=== PATIENT | male | born 1955 | race Caucasian/White ===

== ENCOUNTER 2017-02-13 20:45 | Inpatient (IN) | payer OTHER ==
[~2017-02-13] VITALS: Ht 170.2 cm; Wt 83.6 kg
[2017-02-13 21:41] LABS: HEMATOCRIT 23.9 % (38.0-50.0); MCH 36.4 PG (29.0-34.0); MCHC 34.3 G/DL (30.0-36.0); MCV 106.2 FL (86-99); MEAN PLAT.VOLUME 9.8 uM^3 (9.0-12.4); NRBC (%) 0.3 /100 WBC (0-0); PLATELET COUNT 552 K/uL (156-360); RBC DIS.WIDTH-CV 16.9 % (11.8-14.6); RBC DIS.WIDTH-SD 65.2 % (39-53); RED BLOOD COUNT 2.25 M/uL (4.00-5.50); WHITE BLOOD COUNT 17.3 K/uL (4.1-10.2)
[2017-02-13 21:49] LABS: CHLORIDE 96 mEq/L (99-109); POTASSIUM 2.8 mEq/L (3.7-5.4); SODIUM 136 mEq/L (136-147)
[2017-02-13 21:50] LABS: GLUCOSE 124 mg/dL (70-99)
[2017-02-13 21:52] LABS: ANION GAP 18 MEQ/L (2-14)
[2017-02-13 21:54] LABS: GFR ESTIMATE (CALCULATED) > 59 mL/min/
[2017-02-13 21:55] LABS: UREA NITROGEN (BUN) 25 mg/dL (9-23)
[2017-02-13 22:00] LABS: TROP-I INTERPRETATION NEGATIVE; TROPONIN-I < 0.01 ng/mL (0.0-0.30)
[2017-02-13 23:42] LABS: ADD MIUA? YES; BILIRUBIN MODERATE; BLOOD NEGATIVE; COLOR AMBER ((YELLOW)); GLUCOSE (STRIP) NEGATIVE; KETONES NEGATIVE; LEUKOCYTES SMALL; NITRITE NEGATIVE; PROTEIN (STRIP) 30; SPECIFIC GRAVITY 1.025 (1.000-1.030)
[2017-02-14] VITALS (14 sets, daily range): BP systolic 0–111; BP diastolic 0–77
[2017-02-14 00:03] LABS: BACTERIA 3+ /HPF; EPITHELIAL CELLS 1+ /HPF; MUCUS 1+ /LPF; RED BLOOD CELLS 0-5 /HPF (0-5); UCUL ADDED? YES; WHITE BLOOD CELLS 15-20 /HPF (0-5)
[2017-02-14 00:22] LABS: ICTOTEST NEGATIVE
[2017-02-14 11:28] LABS: HEMATOCRIT 23.5 % (38.0-50.0); MCH 37.6 PG (29.0-34.0); MCHC 34.9 G/DL (30.0-36.0); MCV 107.8 FL (86-99); PLATELET COUNT 404 K/uL (156-360); RBC DIS.WIDTH-CV 17.1 % (11.8-14.6); RBC DIS.WIDTH-SD 66.2 % (39-53); RED BLOOD COUNT 2.18 M/uL (4.00-5.50)
[2017-02-14 12:09] LABS: ANION GAP 13 MEQ/L (2-14); CHLORIDE 105 MEQ/L (99-109); GFR ESTIMATE (CALCULATED) > 59 mL/min/; SAMPLE HEMOLYSIS CHECK 0; SAMPLE ICTERIC CHECK 0; SAMPLE LIPEMIA CHECK 0; SODIUM 139 MEQ/L (136-147); UREA NITROGEN (BUN) 18 mg/dL (9-23)
[2017-02-14 12:12] LABS: GLUCOSE 66 mg/dL (70-99); POTASSIUM 3.4 MEQ/L (3.7-5.4)
[2017-02-14 16:00] LABS: METH RESISTANT S AUREUS PCR NEGATIVE (NEGATIVE)
[2017-02-14 16:02] LABS: PROBE CHECK PASS; SPECIMEN PROCESSING CONTROL PASS
[2017-02-15] VITALS (24 sets, daily range): BP systolic 66–109; BP diastolic 47–94
[2017-02-15 08:23] LABS: ALKALINE PHOSPHATASE 58 IU/L (3-129); ANION GAP 15 MEQ/L (2-14); CHLORIDE 114 MEQ/L (99-109); GFR ESTIMATE (CALCULATED) 51 mL/min/; POTASSIUM 3.5 MEQ/L (3.7-5.4); SAMPLE HEMOLYSIS CHECK 0; SAMPLE ICTERIC CHECK 1; SAMPLE LIPEMIA CHECK 0; SODIUM 142 MEQ/L (136-147); TOTAL BILIRUBIN 3.9 MG/DL (0.0-1.0); UREA NITROGEN (BUN) 20 mg/dL (9-23)
[2017-02-15 08:26] LABS: GLUCOSE 83 mg/dL (70-99)
[2017-02-15 09:02] LABS: HEMATOCRIT 22.3 % (38.0-50.0); MCH 37.9 PG (29.0-34.0); MCHC 33.6 G/DL (30.0-36.0); MCV 112.6 FL (86-99); MEAN PLAT.VOLUME 10.7 uM^3 (9.0-12.4); NRBC (%) 0.3 /100 WBC (0-0); PLATELET COUNT 316 K/uL (156-360); RBC DIS.WIDTH-CV 18.3 % (11.8-14.6); RBC DIS.WIDTH-SD 74.3 % (39-53); RED BLOOD COUNT 1.98 M/uL (4.00-5.50); WHITE BLOOD COUNT 49.5 K/uL (4.1-10.2)
[2017-02-15 09:41] LABS: ABS NEUTROPHIL COUNT 42.5; ANISOCYTOSIS 1+; BAND NEUTROPHILS 25.5 % (0-8.0); EOSINOPHIL ABS CT 0; HYPOCHROMASIA 1+; INSTRUMENT ABS NEUTROPHIL CT 44.1 K/uL; LYMPHOCYTES 2.8 % (15.0-45.0); MACROCYTES 2+; METAMYELOCYTES 6.6 %; MYELOCYTES 1.9 %; PLAT.SUFFICIENCY ADEQUATE; POLYCHROMASIA 1+; SEG.NEUTROPHILS 60.4 % (46.0-76.0)
[2017-02-15 12:16] LABS: MAGNESIUM 0.9 mg/dl (1.3-2.7)
[2017-02-15] MEDS ORDERED: ALLOPURINOL100 MG PO (14:32)
[2017-02-15] MEDS ORDERED: AMLODIPINE BESY10 MG PO (14:32)
[2017-02-15] MEDS ORDERED: COLCRYS0.6 MG PO (14:33)
[2017-02-15] MEDS ORDERED: PROMETHAZINE12.5 M1 PO (14:33)
[2017-02-15] MEDS ORDERED: BUSPIRONE HCL10 MG PO (14:33)
[2017-02-15] MEDS ORDERED: LEXAPRO10 MG PO (14:33)
[2017-02-15] MEDS ORDERED: ROSUVASTATIN CA10 MG PO (14:34)
[2017-02-16] VITALS (22 sets, daily range): BP systolic 73–120; BP diastolic 48–79
[2017-02-16 07:58] LABS: HEMATOCRIT 20.1 % (38.0-50.0); MCHC 34.8 G/DL (30.0-36.0); MCV 109.2 FL (86-99); MEAN PLAT.VOLUME 11.3 uM^3 (9.0-12.4); NRBC (%) 0.2 /100 WBC (0-0); PLATELET COUNT 234 K/uL (156-360); RBC DIS.WIDTH-CV 18.2 % (11.8-14.6); RBC DIS.WIDTH-SD 71.7 % (39-53); RED BLOOD COUNT 1.84 M/uL (4.00-5.50)
[2017-02-16 08:01] LABS: WHITE BLOOD COUNT 40.8 K/uL (4.1-10.2)
[2017-02-16 08:06] LABS: ANION GAP 12 MEQ/L (2-14); CHLORIDE 118 MEQ/L (99-109); GFR ESTIMATE (CALCULATED) > 59 mL/min/; GLUCOSE 97 mg/dL (70-99); POTASSIUM 3.8 MEQ/L (3.7-5.4); SAMPLE HEMOLYSIS CHECK 0; SAMPLE ICTERIC CHECK 0; SAMPLE LIPEMIA CHECK 0; SODIUM 143 MEQ/L (136-147); UREA NITROGEN (BUN) 21 mg/dL (9-23)
[2017-02-16 08:20] LABS: MAGNESIUM 1.8 mg/dl (1.3-2.7)
[2017-02-16 08:46] LABS: ABS NEUTROPHIL COUNT 37.3; BAND NEUTROPHILS 13.5 % (0-8.0); EOSINOPHIL ABS CT 0; INSTRUMENT ABS NEUTROPHIL CT 33.6 K/uL; NUCLEATED RBC'S 0.5
[2017-02-17] VITALS (29 sets, daily range): BP systolic 86–142; BP diastolic 62–90
[2017-02-17 05:06] LABS: HEMATOCRIT 18.9 % (38.0-50.0); MCH 36.4 PG (29.0-34.0); MCHC 33.3 G/DL (30.0-36.0); MCV 109.2 FL (86-99); MEAN PLAT.VOLUME 11.1 uM^3 (9.0-12.4); NRBC (%) 0.2 /100 WBC (0-0); PLATELET COUNT 185 K/uL (156-360); POTASSIUM 3.2 mEq/L (3.7-5.4); RBC DIS.WIDTH-CV 18.3 % (11.8-14.6); RED BLOOD COUNT 1.73 M/uL (4.00-5.50); SODIUM 140 mEq/L (136-147); WHITE BLOOD COUNT 29.8 K/uL (4.1-10.2)
[2017-02-17 05:07] LABS: MAGNESIUM 1.4 mg/dL (1.3-2.7)
[2017-02-17 05:08] LABS: GLUCOSE 99 mg/dL (70-99)
[2017-02-17 05:09] LABS: ANION GAP 8 MEQ/L (2-14)
[2017-02-17 05:12] LABS: GFR ESTIMATE (CALCULATED) > 59 mL/min/
[2017-02-17 05:13] LABS: UREA NITROGEN (BUN) 20 mg/dL (9-23)
[2017-02-17 05:24] LABS: CHLORIDE 116 mEq/L (99-109)
[2017-02-17 10:07] LABS: ALKALINE PHOSPHATASE 98 IU/L (3-129); SAMPLE HEMOLYSIS CHECK 0; SAMPLE ICTERIC CHECK 0; SAMPLE LIPEMIA CHECK 0; TOTAL BILIRUBIN 2.3 MG/DL (0.0-1.0)
[2017-02-17 14:21] LABS: HEMATOCRIT 26.9 % (38.0-50.0); MCH 34.8 PG (29.0-34.0); MCHC 35.3 G/DL (30.0-36.0); MEAN PLAT.VOLUME 11.4 uM^3 (9.0-12.4); NRBC (%) 0.2 /100 WBC (0-0); PLATELET COUNT 198 K/uL (156-360); RBC DIS.WIDTH-CV 22.1 % (11.8-14.6); RBC DIS.WIDTH-SD 77.8 % (39-53)
[2017-02-17 14:23] LABS: MCV 98.5 FL (86-99); RED BLOOD COUNT 2.73 M/uL (4.00-5.50); WHITE BLOOD COUNT 30.7 K/uL (4.1-10.2)
[2017-02-17 14:46] LABS: ANION GAP 10 MEQ/L (2-14); CHLORIDE 113 MEQ/L (99-109); GFR ESTIMATE (CALCULATED) > 59 mL/min/; GLUCOSE 113 mg/dL (70-99); POTASSIUM 3.4 MEQ/L (3.7-5.4); SAMPLE HEMOLYSIS CHECK 0; SAMPLE ICTERIC CHECK 0; SAMPLE LIPEMIA CHECK 0; SODIUM 140 MEQ/L (136-147); UREA NITROGEN (BUN) 20 mg/dL (9-23)
[2017-02-18] VITALS (13 sets, daily range): BP systolic 97–134; BP diastolic 68–93
[2017-02-18 05:50] LABS: HEMATOCRIT 26.2 % (38.0-50.0); MCH 33.2 PG (29.0-34.0); MCV 97.8 FL (86-99); MEAN PLAT.VOLUME 11.3 uM^3 (9.0-12.4); NRBC (%) 0.1 /100 WBC (0-0); PLATELET COUNT 199 K/uL (156-360); RBC DIS.WIDTH-SD 85.6 % (39-53); RED BLOOD COUNT 2.68 M/uL (4.00-5.50); WHITE BLOOD COUNT 27.3 K/uL (4.1-10.2)
[2017-02-18 06:27] LABS: ANION GAP 9 MEQ/L (2-14); CHLORIDE 113 MEQ/L (99-109); GFR ESTIMATE (CALCULATED) > 59 mL/min/; GLUCOSE 115 mg/dL (70-99); MAGNESIUM 1.8 mg/dl (1.3-2.7); POTASSIUM 3.7 MEQ/L (3.7-5.4); SAMPLE HEMOLYSIS CHECK 0; SAMPLE ICTERIC CHECK 0; SAMPLE LIPEMIA CHECK 0; SODIUM 143 MEQ/L (136-147); UREA NITROGEN (BUN) 21 mg/dL (9-23)
[2017-02-18 07:02] LABS: ABS NEUTROPHIL COUNT 26.5; ANISOCYTOSIS 2+; BURR CELLS 1+; EOSINOPHIL ABS CT 0; HEMATOLOGY COMMENT 1 SN; HYPOCHROMASIA 1+; INSTRUMENT ABS NEUTROPHIL CT 26.3 K/uL; LYMPHOCYTES 2.2 % (15.0-45.0); MACROCYTES 2+; PLAT.SUFFICIENCY ADEQUATE; POIKILOCYTOSIS 1+; POLYCHROMASIA 1+; SEG.NEUTROPHILS 92.9 % (46.0-76.0); STOMATOCYTES 1+; TARGET CELLS 1+
[2017-02-19 03:16] VITALS: BP 132/76; BP 183/85
[2017-02-19 08:27] VITALS: BP 112/69
[2017-02-19 08:29] LABS: EOSINOPHIL (%) 0.1 % (0-5); HEMATOCRIT 25.4 % (38.0-50.0); IMMATURE GRANULOCYTE (%) 0.7 % (0.0-0.7); IMMATURE GRANULOCYTE COUNT 0.1 K/uL; INSTRUMENT ABS NEUTROPHIL CT 9.5 K/uL; LYMPHOCYTE COUNT 0.5 K/uL (1.0-2.8); MCH 34.9 PG (29.0-34.0); MCHC 34.6 G/DL (30.0-36.0); MCV 100.8 FL (86-99); MONOCYTE (%) 3.5 % (3-12); MONOCYTE COUNT 0.4 K/uL (0-0.8); NEUTROPHIL (%) 90.6 % (45-76); NEUTROPHIL COUNT 9.5 K/uL (1.8-6.4); NRBC (%) 0.2 /100 WBC (0-0); PLATELET COUNT 180 K/uL (156-360); RBC DIS.WIDTH-CV 24.2 % (11.8-14.6); RBC DIS.WIDTH-SD 88.1 % (39-53); RED BLOOD COUNT 2.52 M/uL (4.00-5.50); WHITE BLOOD COUNT 10.5 K/uL (4.1-10.2)
[2017-02-19 09:05] LABS: ANION GAP 7 MEQ/L (2-14); CHLORIDE 115 MEQ/L (99-109); GFR ESTIMATE (CALCULATED) > 59 mL/min/; GLUCOSE 85 mg/dL (70-99); POTASSIUM 3.6 MEQ/L (3.7-5.4); SAMPLE HEMOLYSIS CHECK 0; SAMPLE ICTERIC CHECK 0; SAMPLE LIPEMIA CHECK 0; SODIUM 144 MEQ/L (136-147); UREA NITROGEN (BUN) 21 mg/dL (9-23)
[2017-02-19 11:59] VITALS: BP 115/65
[2017-02-19 16:00] VITALS: BP 128/75
[2017-02-19 19:38] VITALS: BP 108/65
[2017-02-19 23:06] VITALS: BP 137/86
[2017-02-20 03:07] VITALS: BP 148/75
[2017-02-20 07:27] VITALS: BP 116/74
[2017-02-20 08:35] LABS: ANION GAP 11 MEQ/L (2-14); CHLORIDE 113 MEQ/L (99-109); GFR ESTIMATE (CALCULATED) > 59 mL/min/; GLUCOSE 105 mg/dL (70-99); POTASSIUM 3.9 MEQ/L (3.7-5.4); SAMPLE HEMOLYSIS CHECK 1; SAMPLE ICTERIC CHECK 0; SAMPLE LIPEMIA CHECK 0; SODIUM 144 MEQ/L (136-147); UREA NITROGEN (BUN) 20 mg/dL (9-23)
[2017-02-20 09:31] LABS: EOSINOPHIL (%) 0 % (0-5); HEMATOCRIT 29.1 % (38.0-50.0); IMMATURE GRANULOCYTE (%) 1.9 % (0.0-0.7); IMMATURE GRANULOCYTE COUNT 0.3 K/uL; INSTRUMENT ABS NEUTROPHIL CT 11.8 K/uL; LYMPHOCYTE COUNT 0.7 K/uL (1.0-2.8); MCH 33.5 PG (29.0-34.0); MCHC 32.6 G/DL (30.0-36.0); MCV 102.5 FL (86-99); MEAN PLAT.VOLUME 11.1 uM^3 (9.0-12.4); MONOCYTE COUNT 0.7 K/uL (0-0.8); NEUTROPHIL (%) 87.6 % (45-76); NEUTROPHIL COUNT 11.8 K/uL (1.8-6.4); NRBC (%) 0.3 /100 WBC (0-0); PLATELET COUNT 217 K/uL (156-360); RBC DIS.WIDTH-CV 23.9 % (11.8-14.6); RED BLOOD COUNT 2.84 M/uL (4.00-5.50); WHITE BLOOD COUNT 13.5 K/uL (4.1-10.2)
[2017-02-20 12:03] VITALS: BP 130/69
[2017-02-20 15:44] VITALS: BP 111/67
[2017-02-20 20:25] VITALS: BP 130/78
[2017-02-20 21:09] LABS: POINT-OF-CARE METER ID UU13113725
[2017-02-20 23:27] VITALS: BP 111/72
[2017-02-21 06:43] LABS: EOSINOPHIL (%) 0 % (0-5); HEMATOCRIT 23.3 % (38.0-50.0); IMMATURE GRANULOCYTE (%) 0.8 % (0.0-0.7); IMMATURE GRANULOCYTE COUNT 0.1 K/uL; INSTRUMENT ABS NEUTROPHIL CT 13.9 K/uL; LYMPHOCYTE COUNT 0.6 K/uL (1.0-2.8); MCH 33.2 PG (29.0-34.0); MCHC 33.5 G/DL (30.0-36.0); MCV 99.1 FL (86-99); MEAN PLAT.VOLUME 10.8 uM^3 (9.0-12.4); MONOCYTE (%) 3.7 % (3-12); MONOCYTE COUNT 0.6 K/uL (0-0.8); NEUTROPHIL (%) 91.3 % (45-76); NEUTROPHIL COUNT 13.9 K/uL (1.8-6.4); NRBC (%) 0.2 /100 WBC (0-0); PLATELET COUNT 209 K/uL (156-360); RBC DIS.WIDTH-CV 22.5 % (11.8-14.6); RBC DIS.WIDTH-SD 80.8 % (39-53); RED BLOOD COUNT 2.35 M/uL (4.00-5.50); WHITE BLOOD COUNT 15.3 K/uL (4.1-10.2)
[2017-02-21 07:07] LABS: ANION GAP 7 MEQ/L (2-14); CHLORIDE 113 MEQ/L (99-109); GFR ESTIMATE (CALCULATED) > 59 mL/min/; GLUCOSE 119 mg/dL (70-99); POTASSIUM 3.2 MEQ/L (3.7-5.4); SAMPLE HEMOLYSIS CHECK 0; SAMPLE ICTERIC CHECK 0; SAMPLE LIPEMIA CHECK 0; SODIUM 142 MEQ/L (136-147); UREA NITROGEN (BUN) 21 mg/dL (9-23)
[2017-02-21 08:22] VITALS: BP 139/78
[2017-02-21 12:42] VITALS: BP 126/70
[2017-02-21 16:46] VITALS: BP 140/76
[2017-02-21 20:57] VITALS: BP 114/69
[2017-02-22 00:25] VITALS: BP 122/69
[2017-02-22 04:31] VITALS: BP 123/68
[2017-02-22 06:23] LABS: EOSINOPHIL (%) 0.1 % (0-5); HEMATOCRIT 25.4 % (38.0-50.0); IMMATURE GRANULOCYTE (%) 1.4 % (0.0-0.7); IMMATURE GRANULOCYTE COUNT 0.2 K/uL; LYMPHOCYTE COUNT 0.8 K/uL (1.0-2.8); MCH 33.5 PG (29.0-34.0); MCHC 33.5 G/DL (30.0-36.0); MEAN PLAT.VOLUME 10.4 uM^3 (9.0-12.4); MONOCYTE (%) 3.9 % (3-12); MONOCYTE COUNT 0.7 K/uL (0-0.8); NEUTROPHIL (%) 89.6 % (45-76); NRBC (%) 0.2 /100 WBC (0-0); PLATELET COUNT 241 K/uL (156-360); RBC DIS.WIDTH-SD 80.8 % (39-53); RED BLOOD COUNT 2.54 M/uL (4.00-5.50); WHITE BLOOD COUNT 16.7 K/uL (4.1-10.2)
[2017-02-22 06:49] LABS: ANION GAP 7 MEQ/L (2-14); CHLORIDE 109 MEQ/L (99-109); GFR ESTIMATE (CALCULATED) > 59 mL/min/; GLUCOSE 89 mg/dL (70-99); POTASSIUM 3.4 MEQ/L (3.7-5.4); SAMPLE HEMOLYSIS CHECK 0; SAMPLE ICTERIC CHECK 0; SAMPLE LIPEMIA CHECK 0; SODIUM 140 MEQ/L (136-147); UREA NITROGEN (BUN) 19 mg/dL (9-23)
[2017-02-22 09:28] VITALS: BP 126/70
[2017-02-22 11:52] VITALS: BP 155/80
[2017-02-22] MEDS ORDERED: K-DUR20 MEQ PO (12:30)
[2017-02-22] MEDS ORDERED: FOLIC ACID1 MG PO (12:31)
[2017-02-22] MEDS ORDERED: PREDNISONE20 MG PO (12:31)
[2017-02-22] MEDS ORDERED: FUROSEMIDE20 MG PO (12:31)
[2017-02-22] MEDS ORDERED: Thiamine,Vitamin B1 PO (12:31)
[2017-02-22] MEDS ORDERED: Tums,OsCal PO (12:31)
[2017-02-22 16:04] VITALS: BP 113/72
== END 2017-02-22 17:10 | DRG 871 ==
LOC: EME → EDBD 20:45 → EME 20:45 → 4WEST 23:49 → 5EAST 23:49 → EDOF 23:49 → 3EAST 23:49 → ENRESERV 23:51 → 3EAST 02-14 02:45 → 4WEST 02-14 13:25 → CANRESERV 02-18 13:20 → ENRESERV 02-18 13:20 → 5EAST 02-18 18:08
PROVIDERS: Emergency Medicine; Family Medicine; Internal Medicine Critical Care Medicine; Internal Medicine Pulmonary Disease; Specialist
PROC: HZ2ZZZZ Detoxification Services for Substance Abuse Treatment (ICD-10-PCS; principal; 2017-02-14)
PROC: 30233N1 Transfusion of Nonautologous Red Blood Cells into Peripheral Vein, Percutaneous Approach (ICD-10-PCS; 2017-02-17)
DX: A41.51 Sepsis due to Escherichia coli [E. coli] (principal); R65.21 Severe sepsis with septic shock; J18.9 Pneumonia, unspecified organism; N39.0 Urinary tract infection, site not specified; E87.2 Acidosis; F10.239 Alcohol dependence with withdrawal, unspecified; E46 Unspecified protein-calorie malnutrition; E78.5 Hyperlipidemia, unspecified; E83.42 Hypomagnesemia; E83.51 Hypocalcemia; E86.0 Dehydration; E87.6 Hypokalemia; E87.70 Fluid overload, unspecified; D63.1 Anemia in chronic kidney disease; N18.9 Chronic kidney disease, unspecified; E88.09 Other disorders of plasma-protein metabolism, not elsewhere classified; I12.9 Hypertensive chronic kidney disease with stage 1 through stage 4 chronic kidney disease, or unspecified chronic kidney disease; R09.02 Hypoxemia; D70.9 Neutropenia, unspecified; D53.9 Nutritional anemia, unspecified; Z56.0 Unemployment, unspecified; Z87.891 Personal history of nicotine dependence
CPT/HCPCS: 71010; 76705; 80048; 80048 91; 80053; 81003; 82330; 82948; 83605; 83735; 84100; 84484; 85025; 85027; 86850; 86900; 86901; 86920; 87040; 87077; 87086; 87186; 87493; 87641; 93005; 94799; 99281; 99285; J0456; J0610; J0696; J1650; J1720; J1940; J3411; J3475; J3480; J7030; J7050; J7512; P9016